=== PATIENT | female | born 1980 | race African-American/Black ===

== ENCOUNTER 2017-03-15 22:07 | Emergency (ER) | payer BC, OTHER ==
[2017-03-15] MEDS ORDERED: NS 1,000 ML IV ONE (22:43)
[2017-03-15] MEDS ORDERED: HYDROmorphONE/DILAUDID 1 MG/ML SYR IVP ONE (22:43)
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
[2017-03-15] MEDS ORDERED: LORazepam 2 MG/ML INJ IVP ONE (22:44)
[2017-03-15 23:03] LABS: % IMMATURE GRANULYOCYTES 0.1 % (0.0-1.1); ABSOLUTE IMMATURE GRANULOCYTES 0.01 10^3/uL (0.00-0.10); ADD DIFF? NO; ADD MORPH? NO; ADD SCAN? NO; ATYPICAL LYMPHOCYTE FLAG 10 (0-99); FRAGMENT RBC FLAG 0 (0-99); HEMATOCRIT 43.2 % (38.0-47.0); HEMOGLOBIN 14.5 g/dL (12.6-16.3); LEFT SHIFT FLG 0 (0-99); LIPEMIA HEMOLYSIS FLAG 80 (0-99); MEAN CELL HEMOGLOBIN 27.5 pg (27.9-34.1); MEAN CELL HEMOGLOBIN CONCENTR. 33.6 g/dL (32.4-36.7); PLATELET CLUMPS FLAG 0 (0-99); PLATELET COUNT 333 10^3/uL (150-400); RED BLOOD CELL COUNT 5.27 10^6/uL (4.18-5.33); RED CELL DISTRIBUTION WIDTH 13.3 % (11.5-15.2)
[2017-03-15 23:13] LABS: ANION GAP 13 mEq/L (8-16); CALCIUM 9.4 mg/dL (8.5-10.4); CARBON DIOXIDE 22 mEq/l (22-31); CHLORIDE 104 mEq/L (97-110); CREATININE 0.8 mg/dL (0.6-1.0); GLOMERULAR FILTRATION RATE > 60; GLUCOSE 164 mg/dL (70-100); POTASSIUM 4.3 mEq/L (3.5-5.2); SODIUM 139 mEq/L (134-144)
--- NOTE | 2017-03-15 23:28 | CPEKG ---
Heart Rate: 103 RR Interval: 583 P-R Interval: 168 QRSD Interval: 102 QT Interval: 360 QTC Interval: 471 P [place]: 60 QRS [place]: -17 T Wave [place]: 44 EKG Severity - ABNORMAL ECG - EKG Impression: SINUS TACHYCARDIA EKG Impression: INCOMPLETE RBBB AND LAFB Electronically Signed By: Bharathi Marshall 16-Mar-2017 02:50:45
[2017-03-16] MEDS ORDERED: IOPAMIDOL (ISOVUE 370) 100 ML BTL IV ONE (00:15)
[2017-03-16] MEDS ORDERED: HYDROmorphONE/DILAUDID 1 MG/ML SYR IVP ONE (00:19)
[2017-03-16 00:24] LABS: CK-MB INTERPRETATION NEGATIVE (NEGATIVE); CREATINE KINASE-MB FRACTION 0.57 ng/mL (0-4.55)
[2017-03-16 01:00] LABS: ALBUMIN 4.2 g/dL (3.5-5.0); BILIRUBIN,TOTAL 0.3 mg/dL (0.1-1.4); BILIRUBIN-CONJUGATED 0.2 mg/dL (0.0-0.5); BILIRUBIN-UNCONJUGATED 0.1 mg/dL (0.0-1.1); TOTAL PROTEIN 6.8 g/dL (6.3-8.2)
[2017-03-16] MEDS ORDERED: HYDROmorphONE/DILAUDID 2 MG TAB PO ONE (01:52)
[2017-03-16 02:13] VITALS: BP 129/85; PULSE 95; RESP 16; TEMP 97.7; O2SAT 94
== END 2017-03-16 02:15 | disposition home or self-care (01) ==
LOC: CED 22:07
DX: M54.2 Cervicalgia (principal); E86.9 Volume depletion, unspecified
CPT/HCPCS: 70498-PO; 80048-PO; 80076-PO; 82550-PO; 82553-PO; 84703-PO; 85025-PO; 96374; J1170; J2060; Q9967

== ENCOUNTER 2017-03-17 00:51 | Emergency (ER) | payer BC, OTHER ==
--- NOTE | 2017-03-17 01:06 | EDPHY ---
H & P Time Seen by Provider: 03/17/17 01:10 HPI/ROS: CC: Neck pain HPI: This 36-year-old female with past medical history of fibromyalgia, depression, anxiety, bloody stools thought to be due to diverticulosis, chronic pain, and a torn rotator cuff presents to the emergency department today complaining of neck pain. This has been going on for the last 2 and half weeks and has gradually been getting worse. She was seen here in the emergency room last night and had a CT angio of her neck which was unremarkable. She was seen last week at an outside facility for the same symptoms. She states the pain is dull across her upper back and shoulders but she has sharp pain radiating down both arms right greater than left down to her fingers on the right. She states it feels like a pinched nerve. She also states it feels like she has sore muscles from working out. She describes the pain as excruciating but not as bad as it was last night. She has already tried diclofenac and her immediate release morphine as well as Elavil this evening (prescribed last night from the ED). She has been going to a physical therapist who has been working on her posture and wonders if that is been making her discomfort worse. She has not contacted her primary care provider as of yet but she plans on calling him 1st thing in the morning. She had a similar episode in January but it went away spontaneously. She recalls 1 month ago contacting her primary care provider about having blood in her stool which she thought was due to some dietary changes but did not follow up on this issue. REVIEW OF SYSTEMS: Constitutional: No fever, no chills. Eyes: No discharge. ENT: No sore throat. Respiratory: No cough, no shortness of breath. Cardiac: No chest pain, no palpitations. Gastrointestinal: No abdominal pain, no vomiting. Genitourinary: No hematuria. Musculoskeletal: No low back pain. Skin: No rashes. Neurological: No headache. Past Medical/Surgical History: Past medical history: Fibromyalgia, depression, anxiety, diverticulosis, chronic pain, torn rotator cuff Past surgical history: Hysterectomy, breast reduction Family history: Mother had a tumor on her spinal cord when she was with this patient, hypertension, stroke; Father medical history unknown; Sister health issues that are all "self inflicted" No known drug allergies Medications: Diclofenac 75 mg twice a day, morphine IR 15 mg p.o. Q 6 hours, amitriptyline 50 mg p.o. daily, Zoloft 50 mg, Wellbutrin, vitamin-D, multivitamin Social History: The patient denies tobacco use, she uses alcohol a few times per week, she smokes marijuana daily. She is . She was discharged from the for chronic pain issues. Primary care provider Dr. George Coleman Smoking Status: Never smoked Physical Exam: General Appearance: Alert, moderate distress, rubbing right side of neck. Eyes: Pupils equal and round no pallor or injection. ENT, Mouth: Mucous membranes are moist. Neck: Full range of motion but uncomfortable to rotation; no meningeal signs. Respiratory: There are no retractions, lungs are clear to auscultation. No rales, rhonchi or wheezing. Cardiovascular: Regular rate and rhythm. No murmurs, gallops or rubs. Gastrointestinal: Abdomen is soft and nontender, no masses, bowel sounds normal. Neurological: Awake and alert, sensory and motor exams grossly normal. Equal strength all four extremities. Normal interdigit strength. Good dorsiflexion bilateral great toes. Skin: Warm and dry, no rashes. Musculoskeletal: No clubbing, cyanosis or edema. Psychiatric: Patient is oriented X 3, there is no agitation. DIFFERENTIAL DIAGNOSIS: After history and physical exam differential diagnosis includes but is not limited to: musculoskeletal pain, herniated disc, arthritis , muscle strain, fibromyalgia, chronic pain, inflammatory bowel disease, rheumatologic condition. I do not believe she has an intracranial mass, meningitis, or spinal cord impingement of an emergent nature. Constitutional: Initial Vital Signs Heart Rate 102 H 03/17/17 00:55 Respiratory Rate 16 03/17/17 00:55 Blood Pressure 154/118 H 03/17/17 00:55 O2 Sat (%) 92 03/17/17 00:55 O2 Delivery Mode Room Air Allergies/Adverse Reactions: No Known Allergies Allergy (Verified 03/17/17 01:01) Home Medications: Medication Instructions Recorded Wellbutrin Sr 03/15/17 Zoloft 50mg (*) 03/15/17 Amitriptyline HCl [Elavil 50 mg 50 mg PO DAILY #20 tab 03/16/17 (*)] Diclofenac Sodium 75 mg PO BID #60 tablet. 03/16/17 morphINE IR [morphINE IR 15 mg (*)] 15 mg PO Q6 #12 tab 03/16/17 Medical Decision Making ED Course/Re-evaluation: Patient was seen and examined. Vital signs were reviewed. Her blood pressure was elevated and she was advised to follow up on this with her primary care provider at her next appointment. Her records from last evening were reviewed including the CTA of her neck; as were her records in [facility] which revealed results from a colonoscopy a few years ago consisting of reflux esophagitis, irritable bowel syndrome, enthesopathy. A sed rate and CRP were performed and were within normal limits. The patient received Solu-Medrol 125 mg IV push, Valium 5 mg IV push, and Dilaudid 0.5 mg IV push. She was feeling much better at discharge. She still has medications from her prior visit at home. She was strongly encouraged to call her primary care provider 1st thing in the morning and arrange follow-up within the next 1-2 days. She states she is hoping to see him in the office later today (03/17/17). She may need an MRI of her cervical spine and more in-depth workup, as the cause of her pain has not been identified. However I see no sign of an emergency condition to warrant further evaluation here in the emergency department this evening. At the end of the visit, the patient requested a note asking for a medical excuse for cancelling a cruise to [place] on 03/18/17, as she does not think she will feel well enough to go. I told her I would feel more comfortable if she had her primary care provider write the note at her follow up appointment today. - Data Points Laboratory Results: Laboratory Results 03/17/17 01:49 03/17/17 03/17/17 01:49 01:49 Hct 40.5 % % (38.0-47.0) ESR 8 MM/HR MM/HR (0-20) C-Reactive Protein < 5.0 mg/L mg/L (<10.0) Medications Given: Discontinued Medications Diazepam (Valium Injection) 5 mg IVP EDNOW ONE Stop: 03/17/17 01:57 Last Admin: 03/17/17 02:08 Dose: 5 mg Hydromorphone HCl (Dilaudid) 0.5 mg IVP EDNOW ONE Stop: 03/17/17 02:52 Last Admin: 03/17/17 02:57 Dose: 0.5 mg Methylprednisolone Sodium Succinate (Solu-Medrol) 125 mg IVP EDNOW ONE Stop: 03/17/17 01:57 Last Admin: 03/17/17 02:06 Dose: 125 mg Departure - Departure Disposition: Home, Routine, Self-Care Clinical Impression: Musculoskeletal pain Condition: Good Instructions: Musculoskeletal Pain (ED) Additional Instructions: Call first thing in the morning to arrange follow up with Dr. Coleman in the next 1 - 2 days. Tell him you are an ER follow up (and you have been to an Emergency Department and Urgent Care three times in the last week. Continue previously prescribed medications as directed. Return to the ER if numbness, tingling, weakness, fever or any other concerns. You will need further evaluation as the potential causes of your symptoms have not been identified.
[2017-03-17] MEDS ORDERED: methylPREDNISolone SOD SUCC 125 MG/2 ML VIAL IVP ONE (01:56)
[2017-03-17] MEDS ORDERED: DIAZEPAM 10 MG/2 ML SYR IVP ONE (01:56)
[2017-03-17 02:02] VITALS: RESP 16
[2017-03-17 02:07] LABS: HEMATOCRIT 40.5 % (38.0-47.0)
[2017-03-17] MEDS ORDERED: HYDROmorphONE/DILAUDID 1 MG/ML SYR IVP ONE ×2 (02:51→03:22)
[2017-03-17 03:16] VITALS: TEMP 98.2; O2SAT 94
[2017-03-17 03:47] VITALS: BP 137/83; PULSE 88
== END 2017-03-17 03:51 | disposition home or self-care (01) ==
LOC: CED 00:51
DX: M79.1 Myalgia (principal)
CPT/HCPCS: 85652-PO; 96374; J1170

== ENCOUNTER 2017-04-22 05:39 | Observation (INO) | payer OTHER ==
[2017-04-22] MEDS ORDERED: ceFAZolin 2 GM/DEXTROSE 100 ML IV ONE (06:00)
[2017-04-22] MEDS ORDERED: CHLORHEXIDINE GLUC HIBICLENS 118 ML BTL TP ONE (06:42)
[2017-04-22] MEDS ORDERED: SURGIFLO MATRIX KIT WITH THROMBIN TP ONE (06:42)
[2017-04-22] MEDS ORDERED: THROMBIN (BOVINE) 5,000 UNIT VIAL TP ONE (06:43)
[2017-04-22] MEDS ORDERED: BUPIVACAINE 0.25% 30 ML SDV ONE (06:43)
[2017-04-22] MEDS ORDERED: BACITRACIN 50,000 UNITS/10 ML SYR IRR ONE (06:43)
--- NOTE | 2017-04-22 07:00 | PDANEPAE ---
ANE History of Present Illness c3-4 ACDF ANE Past Medical History - Cardiovascular History Hx Hypertension: No Hx Arrhythmias: No Hx Chest Pain: No Hx Coronary Artery / Peripheral Vascular Disease: No Hx CHF / Valvular Disease: No Hx Palpitations: No - Pulmonary History Hx COPD: No Hx Asthma/Reactive Airway Disease: No Hx Recent Upper Respiratory Infection: No Hx Oxygen in Use at Home: No Hx Sleep Apnea: No Sleep Apnea Screening Result - Last Documented: Negative - Neurologic History Hx Cerebrovascular Accident: No Hx Seizures: No Hx Dementia: No - Endocrine History Hx Diabetes: No - Renal History Hx Renal Disorders: No - Liver History Hx Hepatic Disorders: No - Neurological & Psychiatric Hx Hx Neurological and Psychiatric Disorders: Yes Neurological / Psychiatric History Comment: ANXIETY & DEPRESSION - Cancer History Hx Cancer: No - Congenital Disorder History Hx Congenital Disorders: No - GI History Hx Gastrointestinal Disorders: Yes Gastrointestinal History Comment: DIVERTICULOSIS - Other Health History Other Health History: FIBROMYALGIA - Chronic Pain History Chronic Pain: Yes (NECK & SHOULDERS) - Surgical History Prior Surgeries: HYSTERECTOMY 2009. BREAST REDUCTION 2015 ANE Review of Systems Review of systems is: negative - Exercise capacity Exercise capacity: >=4 METS ANE Patient History - Allergies Allergies/Adverse Reactions: No Known Allergies Allergy (Verified 03/17/17 01:01) - Home Medications Home Medications: Wellbutrin Sr 03/15/17 [Last Taken 04/21/17 13:00] Zoloft 50mg (*) 03/15/17 [Last Taken 04/21/17 13:00] Flexeril 04/10/17 [Last Taken 1 Month Ago] Herbals/Supplements -Info Only 04/10/17 [Last Taken 1 Month Ago] Methylprednisolone 04/10/17 [Last Taken 04/19/17] Tylenol 04/10/17 [Last Taken Unknown] - NPO status NPO Status: no food or drink >8 hours NPO Since - Liquids (Date): 04/21/17 NPO Since - Liquids (Time): 22:00 NPO Since - Solids (Date): 04/21/17 NPO Since - Solids (Time): 20:00 - Anes Hx Anes Hx: no prior problems - Smoking Hx Smoking Status: Former smoker - Family Anes Hx Family Hx Anesthesia Complications: NEG ANE Labs/Vital Signs - Vital Signs Blood Pressure: 120/78 Heart Rate: 87 Respiratory Rate: 16 O2 Sat (%): 94 Height: 170.18 cm Weight: 86.183 kg ANE Physical Exam - Airway Neck exam: decreased ROM Mallampati Score: Class 2 Mouth exam: normal dental/mouth exam - Pulmonary Pulmonary: no respiratory distress - Cardiovascular Cardiovascular: regular rate and rhythym - ASA Status ASA Status: II ANE Anesthesia Plan Anesthesia Plan: general endotracheal anesthesia Specialized Airway: video laryngoscope
[2017-04-22] MEDS ORDERED: MIDAZOLAM 2 MG/2 ML VIAL IVP ONE (07:01)
[2017-04-22] MEDS ORDERED: ONDANSETRON 4 MG/2 ML VIAL ONE (07:09)
[2017-04-22] MEDS ORDERED: PROPOFOL/EMULSION 500 MG/50 ML BOTTLE IV ONE (07:09)
[2017-04-22] MEDS ORDERED: DEXAMETHASONE 4 MG/ML VIAL ONE (07:09)
[2017-04-22] MEDS ORDERED: REMIFENTANIL HCL 1 MG VIAL ONE (07:09)
[2017-04-22] MEDS ORDERED: PROPOFOL 200 MG/20 ML VIAL ONE (07:09)
[2017-04-22] MEDS ORDERED: LIDOCAINE 2% 5 ML SDV ONE (07:09)
[2017-04-22] MEDS ORDERED: fentaNYL 100 MCG/2 ML INJ ONE ×3 (07:09→09:27)
[2017-04-22] MEDS ORDERED: ROCURONIUM 50 MG/5 ML VIAL ONE (07:09)
[2017-04-22] MEDS ORDERED: SUGAMMADEX SODIUM 200 MG/2 ML VIAL IVP ONE (08:44)
[2017-04-22] MEDS ORDERED: ONDANSETRON 4 MG/2 ML VIAL IVP PRN ×2 (08:49→09:14)
[2017-04-22] MEDS ORDERED: OXYCODONE/APAP 5/325 TAB PO PRN (08:49)
[2017-04-22] MEDS ORDERED: ACETAMINOPHEN 500 MG TAB PO PRN (08:49)
[2017-04-22] MEDS ORDERED: HYDROCODONE/APAP 5/325 TAB PO PRN (08:49)
[2017-04-22] MEDS ORDERED: ALBUTEROL 3 ML DEYVIAL IH PRN (08:49)
[2017-04-22] MEDS ORDERED: NALOXONE HCL 0.4 MG/ML INJ IVP PRN (08:49)
[2017-04-22] MEDS ORDERED: MEPERIDINE 25 MG/ML SYR IVP PRN (08:49)
[2017-04-22] MEDS ORDERED: PROMETHAZINE HCL 25 MG/ML INJ IVP PRN (08:49)
[2017-04-22] MEDS ORDERED: ONDANSETRON DISINTEGRATING 4 MG TAB PO PRN (09:14)
[2017-04-22] MEDS ORDERED: MAGNESIUM HYDROXIDE 30 ML UDCUP PO PRN (09:14)
[2017-04-22] MEDS ORDERED: BISACODYL 10 MG SUPP PR PRN (09:14)
[2017-04-22] MEDS ORDERED: POLYETHYLENE GLYCOL 3350 17 GM PKT PO PRN (09:14)
[2017-04-22] MEDS ORDERED: LACTULOSE 20 GM/30 ML UDCUP PO PRN (09:14)
[2017-04-22] MEDS ORDERED: diphenhydrAMINE 25 MG CAP PO PRN (09:14)
[2017-04-22] MEDS ORDERED: oxyCODONE IR 5 MG TAB PO PRN (09:14)
[2017-04-22] MEDS ORDERED: NS 1,000 ML IV SCH (09:15)
--- NOTE | 2017-04-22 09:22 | PDHPUP ---
History & Physical Update H&P update statement: This history and physical update is based on an assessment of the patient which was completed after admission or registration (within 24 hours), but prior to the surgery/procedure. H&P update: H&P reviewed & patient examined, no change in patient's condition since H&P completed
--- NOTE | 2017-04-22 09:25 | POSTOPPROG ---
Post Op Note Date of Operation: 04/22/17 Surgeon: Rodrick Tam Cooker Soda: Meredith Hawkins Anesthesia: GET(General Endotracheal) Pre-op Diagnosis: Cervical radiculopathy Post-op Diagnosis: Same Procedure: ACDF 3/4 Inf/Abcess present in the surg proc area at time of surgery?: No Depth: Organ Space Complications: None, see dictated op report SOAP Progress Note Assessment/Plan: Assessment: Plan: 04/22/17 09:23 S: Patient in PACU. Stable O: NAD, VSS CN II-XII grossly intact PERRL, EOMI BUE 5/5= BLE 5/5= Sensation intact to lt touch Incision: c/d/i- dermabond A: 37 yo female sp ACDF C3/4 for radiculopathy and herniated disc P: -Admit to med/surg for observation -Postop x-rays in a few hours -No collar needed -Advance diet as tolerated -Activity as tolerated, no extreme twisting or neck or heavy overhead lifting -Dispo- Can go home later today if swallowing well, pain under control -Call with any changes in neuro exam Objective: Vital Signs Temp Pulse Resp BP Pulse Ox 36.9 C 87 16 120/78 94 04/22/17 06:24 04/22/17 07:01 04/22/17 07:01 04/22/17 07:01 04/22/17 07:01
[2017-04-22] MEDS ORDERED: DIAZEPAM 10 MG/2 ML SYR ONE (09:27)
[2017-04-22] MEDS ORDERED: HYDROmorphONE/DILAUDID 1 MG/ML SYR ONE (09:27)
[2017-04-22] MEDS: fentaNYL 100 MCG/2 ML INJ IVP PRN ×2 (09:30→09:40)
[2017-04-22] MEDS: HYDROmorphONE/DILAUDID 1 MG/ML SYR IVP PRN ×3 (09:31→09:56)
--- NOTE | 2017-04-22 09:31 | GOP ---
[f rep st] OPERATIVE REPORT DATE OF OPERATION: 04/22/2017 SURGEON: Rodrick Tam MD FINGERER: JR Kelly. ANESTHESIA: General endotracheal. PREOPERATIVE DIAGNOSIS: Severe cervical stenosis with some signs of myelopathy. POSTOPERATIVE DIAGNOSIS: Severe cervical stenosis with some signs of myelopathy. PROCEDURE PERFORMED: 1. C3-4 anterior cervical diskectomy and fusion. 2. Placement of interbody graft at C3-4. 3. Anterior instrumentation at C3-4. 4. Use of the operative microscope. 5. Intraoperative neurophysiologic monitoring including somatosensory-evoked potentials and motor-e voked potentials. 6. [place] of local autograft. 7. Use of allograft Pro[employer]ix demineralized bone matrix. FINDINGS: Successful ACDF. SPECIMENS: None. ESTIMATED BLOOD LOSS: 25 cc. INDICATIONS: The patient is a 37-year-old woman who presented with bilateral arm and leg paresthesi as periodically. MRI of the cervical spine showed a large soft disc extrusion at C3-4 with very sev ere stenosis especially on the right side, and effacement of the spinal cord. She is not overtly my elopathic in the clinic but was still having some periodic arm paresthesias and shoulder pain. We d iscussed the options including arthroplasty versus ACDF and settled on ACDF today. DESCRIPTION OF PROCEDURE: After informed consent was obtained from the patient, the patient was bro ught to the operating room, placed in the supine position on the operating table. A formal time-out was performed, identifying the patient by name, medical record number, and date of . Preopera tive antibiotics were given. The endotracheal tube was placed and general endotracheal anesthesia w as smoothly induced. The head was extended and placed in 10 pounds of traction with a chin strap. Baseline motor-evoked and somatosensory-evoked potentials were normal. The skin incision was marked using lateral fluoroscopy to access the C3-4 disc space. Ten cc of 0.25% Marcaine with epinephrine was infiltrated in the skin for hemostasis. The neck was prepped and draped in the normal sterile fashion. A skin incision was made using a 10 blade and the subcutaneous tissues were dissected usin g monopolar electrocautery. The skin was undermined over the platysma and the platysma was opened i n line with its fibers. The avascular plane between the midline neck structures and the sternocleid omastoid was then dissected down to the anterior surface of the spine. The prevertebral fascia was opened and a disc space marker was placed and a lateral radiograph confirmed the C3-4 disc space. T he longus colli muscles were then elevated laterally and the inferior endplate of C3 and superior en dplate of C4 were identified. Self retaining retractors were placed. [place] distraction was placed across the disk space and the operative microscope was brought onto the field. Motor-evoked and so matosensory-evoked potentials remained at baseline. The disk was completely removed using curette and Kerrison punches. A rent was seen in the posterio r longitudinal ligament and this was opened further, finding the large soft disc extrusion posterior ly. The posterior longitudinal ligament was completely opened and the soft disc extrusion was remov ed allowing relaxation of the dura. Once the decompression was carried out into the right-sided for amen, and the left side the foramen was also decompressed. All bleeding was controlled with Gelfoam . The disc space was then sized for a 7 x 14 x 11 Medtronic anatomic PTC cage, which was packed wit h the locally harvested autograft from drilling down the posterior osteophytes, as well as [employer] demineralized bone matrix. This was then placed into the disk space and lateral radiograph confirme d good placement. The [place] distraction was then removed and the disk space was sized for a 17 mm Medtronic Zevo plate, which was secured to C3 and C4 using 3.5 x 13 mm titanium screws. A final flu oroscopy was obtained showing good placement of the graft and the plate with no hardware malplacemen t. The locking cap was locked down on the plate over the screw heads. The wound was then copiously irrigated using bacitracin irrigation. All bleeding was controlled with bipolar electrocautery. T he platysma was closed using interrupted 2-0 Vicryl. The deep dermis was closed using interrupted 2 -0 Vicryl and the skin was closed using Dermabond. Sterile dressings were placed. The patient was awakened in the operating room. She was extubated and transferred to PACU in stable condition. The re were no operative complications. I was scrubbed and present for the entire procedure. FLUIDS AND URINE OUTPUT: Per the anesthesia record. All somatosensory-evoked and motor-evoked potentials were stable throughout the case with no changes . DRAINS: None. /[id number]/MODL
[2017-04-22] MEDS: DIAZEPAM 10 MG/2 ML SYR IVP PRN ×2 (09:33→09:57)
--- NOTE | 2017-04-22 10:29 | POSTANESTH ---
Post Anesthetic Evaluation Cardiovascular Status: Normal, Stable Respiratory Status: Normal, Stable Level of Consciousness/Mental Status: Can Participate in Eval Pain Control: Adequate, Prn Tx Ordered Nausea/Vomiting Control: Adequate, Prn Tx Ordered Complications Possibly Related to Anesthesia: None Noted
[2017-04-22] MEDS: ACETAMINOPHEN 500 MG TAB PO SCH ×2 (13:24→20:18)
[2017-04-22] MEDS: ceFAZolin 2 GM/DEXTROSE 100 ML IV SCH ×2 (13:24→20:23)
[2017-04-22] MEDS: CYCLOBENZAPRINE 10 MG TAB PO PRN (18:47)
[2017-04-22] MEDS: FAMOTIDINE 20 MG TAB PO SCH (20:19)
[2017-04-22] MEDS: SENNOSIDES/DOCUSATE SODIUM TAB PO SCH (20:19)
[2017-04-22] MEDS ORDERED: AMITRIPTYLINE HCL 50 MG TAB PO SCH (21:00)
[2017-04-23] MEDS: ACETAMINOPHEN 500 MG TAB PO SCH ×2 (05:40→13:16)
--- NOTE | 2017-04-23 08:34 | SOAPPROG ---
SOAP Progress Note Assessment/Plan: Assessment: 37 yo female POD #1 s/p C3/4 ACDF doing well with improved paresthesias in hands right shoulder pain improved, still with some left shoulder pain Plan: PT/OT/ST needs cervical xrays today prior to DC home D/W Dr. Tam 04/23/17 08:31 Subjective: Pt is awake, alert, oriented and doing well this AM. She feels her hand paresthesias are improved. Swallowing OK so far. Had a PB &J dave. Objective: Vital Signs Temp Pulse Resp BP Pulse Ox 36.9 C 91 14 107/68 94 04/23/17 07:48 04/23/17 07:48 04/23/17 07:48 04/23/17 07:48 04/23/17 07:48 04/22/17 04/23/17 04/24/17 05:59 05:59 05:59 Intake Total 1200 Output Total 10 Balance 1190 NEuro: COCHRNA, Sens +LT speech clear equal strength bilaterally incision: CDI ICD10 Worksheet Patient Problems: Problems Problem Status Onset Cervical stenosis of spinal canal Acute - ICD10 Problem Qualifiers (1) Cervical stenosis of spinal canal
[2017-04-23] MEDS: SENNOSIDES/DOCUSATE SODIUM TAB PO SCH (08:38)
[2017-04-23] MEDS: FAMOTIDINE 20 MG TAB PO SCH (08:39)
[2017-04-23 11:18] VITALS: BP 113/77; PULSE 86; RESP 16; TEMP 97.9; O2SAT 95
[2017-04-23] MEDS ORDERED: SERTRALINE HCL 50 MG TAB PO SCH (13:00)
[2017-04-23] MEDS ORDERED: buPROPion 75 MG TAB PO SCH (13:00)
[2017-04-23] MEDS: CYCLOBENZAPRINE 10 MG TAB PO PRN (13:16)
[2017-04-25] MEDS ORDERED: ENOXAPARIN 40 MG/0.4 ML SYR SC SCH (09:00)
--- NOTE | 2017-04-27 17:05 | ASMTCMCOM ---
CM Note CM Note Notes: Late entry due to [employer] down time: 04/23/17 Pt medically stable for d/c, therapies clear pt. No CM d/c needs identified. Date Signed: 04/24/2017 04:17 PM Electronically Signed By:Zo Hooks
== END 2017-04-23 14:22 | disposition home or self-care (01) ==
LOC: EEVIPCON 05:39 → F3N 05:39
PROVIDERS: ADMIT Neurological Surgery; ATTEND Neurological Surgery
PROC: 8E0WXBZ Computer Assisted Procedure of Trunk Region (ICD-10-PCS; principal; 2017-04-22 07:15)
PROC: 0RT30ZZ Resection of Cervical Vertebral Disc, Open Approach (ICD-10-PCS; principal; 2017-04-22 07:15)
PROC: 0RG10A0 Fusion of Cervical Vertebral Joint with Interbody Fusion Device, Anterior Approach, Anterior Column, Open Approach (ICD-10-PCS; principal; 2017-04-22 07:15)
DX: M48.02 Spinal stenosis, cervical region (principal); M50.01 Cervical disc disorder with myelopathy, high cervical region; M54.12 Radiculopathy, cervical region; Z87.891 Personal history of nicotine dependence
CPT/HCPCS: 22551; 72040; 76001; 92610; 97161; 97165; G0378; C1713; J0171; J0690; J1100; J1170; J2250; J2405; J2704; J3010

== ENCOUNTER → 2017-06-18 | Outpatient (CLI) | payer OTHER | LOC: CIMAGING 12:06 | PROVIDERS: ATTEND Neurological Surgery | DX: Z09 Encounter for follow-up examination after completed treatment for conditions other than malignant neoplasm (principal); Z98.1 Arthrodesis status | CPT/HCPCS: 72040-PO ==

== ENCOUNTER → 2017-09-11 | Outpatient (CLI) | payer OTHER | LOC: CIMAGING 10:47 | PROVIDERS: ATTEND Neurological Surgery | DX: Z09 Encounter for follow-up examination after completed treatment for conditions other than malignant neoplasm (principal); Z98.1 Arthrodesis status | CPT/HCPCS: 72040-PO ==

== ENCOUNTER → 2017-12-10 | Outpatient (CLI) | payer OTHER | LOC: FIMAGING 09:30 | PROVIDERS: ATTEND Physician Assistant | DX: Z09 Encounter for follow-up examination after completed treatment for conditions other than malignant neoplasm (principal); Z98.1 Arthrodesis status ==